=== PATIENT | female | born 1955 | race Caucasian/White ===

== ENCOUNTER 2017-07-10 12:53 | Day surgery (SDC) | payer BC, OTHER ==
[~2017-07-10 12:53] MED LIST: Sodium Chloride 0.9% 10 ML Syringe FLUSH PRN
[2017-07-10] MEDS: Lactated Ringers 1,000 ML IV SCH (13:38)
[2017-07-10] MEDS ORDERED: Propofol 200 MG/20 ML SDV ONE ×5 (13:40→14:34)
[2017-07-10] MEDS ORDERED: Midazolam 1 MG/ML 2 ML SDV ONE ×2 (13:40)
[2017-07-10] MEDS ORDERED: fentaNYL 100 MCG/2 ML SDV ONE ×2 (13:40)
--- NOTE | 2017-07-10 14:42 | PCM.HPR ---
H & P Addendum review - H & P Addendum Review Date of Original H & P: 06/30/17 Date Reviewed: 07/10/17 Time Reviewed: 13:45 Patient was Examined: No Changes
--- NOTE | 2017-07-10 14:43 | PCM.OPNOTE ---
- General Post-Op/Procedure Note Date of Surgery/Procedure: 07/10/17 Operative Procedure(s): Colonoscopy with polypectomy Findings: Sig polys at 30 and 25 cm Sig tics Pre Op Diagnosis: Screening Post-Op Diagnosis: Same Anesthesia Technique: MAC Primary Surgeon: Vickey Pereira Anesthesia Provider: Maureen Lawton Complications: None Condition: Good
--- NOTE | 2017-07-10 18:02 | OR ---
Date of Procedure: 07/10/2017 PREOPERATIVE DIAGNOSIS: Colon screening. POSTOPERATIVE DIAGNOSES: 1. Sigmoid colon polyps. 2. Sigmoid diverticulosis. PROCEDURE: Colonoscopy with polypectomy. ANESTHESIA: IV sedation. DESCRIPTION OF PROCEDURE: The patient was brought to the procedure room, where she was placed on her left side and IV sedation administered. Digital rectal exam was performed which was normal. Colonoscope was inserted and advanced into a tortuous sigmoid colon with multiple diverticula present. There was difficulty maneuvering the scope through, but eventually I was able to get past the sigmoid colon and then advanced to the level of the cecum without difficulty. Cecal position was confirmed by identifying the appendiceal lumen and ileocecal valve. Prep was good with some formed stool from diverticulosis remaining on the left side. Upon withdrawing the scope, the ascending, transverse, and descending colon were normal in appearance. In the sigmoid colon at 30 cm, was a large 1 cm polyp on a long 1 cm stalk. This was transected with the cautery snare. I was unable to retrieve the polyp as I could not find it in all the tortuous folds. There was a second 8-mm polyp located 25 cm from the anal verge that was removed with cautery snare and retrieved in the polyp trap. Multiple large diverticula were present throughout the sigmoid colon. Rectum was normal and retroflexion was normal. Air was removed and the scope withdrawn. The patient tolerated the procedure well and returned to recovery in stable condition. I will have her get enema and strain to try to find the polyp. She should undergo a colonoscopy again in 2 years because of the larger polyps, which were obviously adenomatous. CARLOS MATT MD /[id number]
== END 2017-07-10 16:24 | disposition home or self-care (01) ==
LOC: LL.SDS 12:53
PROVIDERS: ATTEND Surgery
DX: Z12.11 Encounter for screening for malignant neoplasm of colon (principal); K63.5 Polyp of colon; K57.30 Diverticulosis of large intestine without perforation or abscess without bleeding; I10 Essential (primary) hypertension; E11.9 Type 2 diabetes mellitus without complications; E66.01 Morbid (severe) obesity due to excess calories; E78.5 Hyperlipidemia, unspecified; E03.9 Hypothyroidism, unspecified; Z79.4 Long term (current) use of insulin; Z79.899 Other long term (current) drug therapy
CPT/HCPCS: J2250; J2704; J3010; J7120

== ENCOUNTER 2021-09-21 17:29 | Inpatient (IN) | payer MEDICARE, OTHER ==
[2021-09-21 18:41] LABS: ANION GAP 12.8 meq/L (7-15)
[2021-09-21 18:46] LABS: CORONAVIRUS COVID-19 NAA NEGATIVE (NEGATIVE); RESPIRATORY SYNCYTIAL VIR NAA NEGATIVE (NEGATIVE)
[2021-09-21] MEDS ORDERED: Sodium Chloride 0.9% 1,000 ML IV SCH (20:15)
[2021-09-21] MEDS ORDERED: Magnesium Hydroxide 400 MG/5 ML Susp 30 ML Cup PO PRN (20:19)
[2021-09-21] MEDS ORDERED: INSULIN LISPRO 200 UNIT/ML SQ PRN (20:24)
[2021-09-21] MEDS ORDERED: ALBUTEROL SULFATE 90 MCG INH PRN (20:24)
[2021-09-21] MEDS ORDERED: Non-Formulary Medication 1 Each (Oxycodone [Oxycodone] 5 MG Tablet) PO PRN (20:24)
[2021-09-21] MEDS ORDERED: [UNRECOGNIZED DRUG - OTHER] SQ PRN (20:24)
[2021-09-21] MEDS ORDERED: INSULN SQ PRN (20:24)
[2021-09-21] MEDS ORDERED: Acetaminophen 650 MG Tab.ER PO PRN (20:24)
[2021-09-21] MEDS ORDERED: Non-Formulary Medication 1 Each (Cyclobenzaprine [Flexeril] 10 MG Tablet) PO PRN (20:24)
[2021-09-21] MEDS ORDERED: Non-Formulary Medication 1 Each (Alprazolam [Alprazolam] 0.5 MG Tablet) PO SCH (20:30)
[2021-09-21] MEDS ORDERED: HYDROCHLOROTHIAZIDE PO SCH (20:30)
[2021-09-21] MEDS ORDERED: Non-Formulary Medication 1 Each (Aspirin [Children's Aspirin] 81 MG Tab.Chew) PO SCH (20:30)
[2021-09-21] MEDS ORDERED: METOPROLOL TARTRATE 50 MG PO SCH (20:30)
[2021-09-21] MEDS ORDERED: VANCOmycin 1.5 GM/300 ML 1.5 GM in Premix Bag 1 BAG IV SCH (20:30)
[2021-09-21] MEDS ORDERED: VALSARTAN PO SCH (20:30)
[2021-09-21] MEDS ORDERED: [UNRECOGNIZED DRUG - OTHER] PO SCH (20:30)
[2021-09-21] MEDS ORDERED: METFORMIN HCL 500 MG PO SCH (20:30)
[2021-09-21] MEDS ORDERED: Vancomycin 2 GM in Sodium Chloride 0.9% 500 ML IV SCH ×2 (21:00→22:00)
[2021-09-21] MEDS: cefTRIAXone 2 GM Vial IVPUSH SCH (21:13)
[2021-09-21] MEDS ORDERED: Albuterol 6.7 GM Inhaler INH PRN (21:34)
[2021-09-21] MEDS ORDERED: Cyclobenzaprine 10 MG Tab PO PRN (21:41)
[2021-09-21] MEDS ORDERED: oxyCODONE 5 MG Tab PO PRN (21:48)
[2021-09-21] MEDS: BIOTIN 10 MG PO SCH (22:18)
[2021-09-21] MEDS: oxyCODONE 5 MG Tab PO PRN (23:12)
[2021-09-22] MEDS: oxyCODONE 5 MG Tab PO PRN ×5 (04:44→20:26)
[2021-09-22] MEDS ORDERED: Insulin Lispro 100 Units/ML 3 ML Vial SUBCUT SCH ×3 (07:00→11:30)
[2021-09-22] MEDS: [UNRECOGNIZED DRUG - OTHER] SUBCUT SCH ×5 (07:30→17:02)
[2021-09-22] MEDS: INSULIN LISPRO SUBCUT SCH ×5 (07:30→17:02)
[2021-09-22] MEDS: TRESIBA 200 UNIT/ML SUBCUT SCH (07:30)
[2021-09-22] MEDS ORDERED: Non-Formulary Medication 1 Each (Levothyroxine [Synthroid] 50 MCG Tablet) PO SCH (07:30)
[2021-09-22] MEDS ORDERED: IRON PO SCH (08:00)
[2021-09-22] MEDS ORDERED: MULTIVIT CALC MINS PO SCH (08:00)
[2021-09-22] MEDS ORDERED: INSULIN LISPRO 200 UNIT/ML SQ SCH (08:00)
[2021-09-22] MEDS ORDERED: FOLIC PO SCH (08:00)
[2021-09-22] MEDS ORDERED: CLOPIDOGREL BISULFATE 75 MG PO SCH (08:00)
[2021-09-22] MEDS ORDERED: INSULN SQ SCH (08:00)
[2021-09-22] MEDS ORDERED: [UNRECOGNIZED DRUG - OTHER] PO SCH (08:00)
[2021-09-22] MEDS ORDERED: Non-Formulary Medication 1 Each (Cetirizine [Zyrtec] 10 MG Tablet) PO SCH (08:00)
[2021-09-22] MEDS ORDERED: [UNRECOGNIZED DRUG - OTHER] SQ SCH (08:00)
[2021-09-22] MEDS: Hydrochlorothiazide 25 MG Tab PO SCH (08:37)
[2021-09-22] MEDS: Multivitamin Tab PO SCH (08:38)
[2021-09-22] MEDS: Metoprolol Tartrate 25 MG Tab PO SCH ×2 (08:38→17:00)
[2021-09-22] MEDS: ALPRAZolam 0.25 MG Tab PO SCH ×2 (08:38→22:13)
[2021-09-22] MEDS: Aspirin 81 MG Tab.Chew PO SCH (08:38)
[2021-09-22] MEDS: metFORMIN 500 MG Tab PO SCH ×2 (08:38→16:59)
[2021-09-22] MEDS: Clopidogrel 75 MG Tab PO SCH (08:38)
[2021-09-22] MEDS: Cetirizine 10 MG Tab PO SCH (08:38)
[2021-09-22] MEDS: Sodium Chloride 0.9% 10 ML Syringe FLUSH PRN ×2 (08:39→12:18)
[2021-09-22] MEDS: Levothyroxine 50 MCG Tab PO SCH (08:39)
[2021-09-22] MEDS: BIOTIN 10 MG PO SCH (08:39)
[2021-09-22 10:23] LABS: ANION GAP 8.2 meq/L (7-15)
[2021-09-22] MEDS ORDERED: 50% Dextrose in Water 50 ML Syringe IVPUSH PRN (10:41)
[2021-09-22] MEDS ORDERED: Glucagon,Human Recombinant 1 MG Vial IM PRN (10:41)
[2021-09-22] MEDS ORDERED: Non-Formulary Medication 1 Each (Gabapentin [Neurontin] 300 MG Cap) PO SCH (20:00)
[2021-09-22] MEDS: atorvaSTATin 40 MG Tab PO SCH (20:15)
[2021-09-22] MEDS: cefTRIAXone 2 GM Vial IVPUSH SCH (20:15)
[2021-09-22] MEDS: Gabapentin 300 MG Cap PO SCH (21:54)
[2021-09-23] MEDS: oxyCODONE 5 MG Tab PO PRN ×5 (01:46→19:49)
[2021-09-23] MEDS: Acetaminophen 325 MG Tab PO PRN ×2 (02:02→19:47)
[2021-09-23] MEDS: Sodium Chloride 0.9% 10 ML Syringe FLUSH PRN ×2 (06:10→09:58)
[2021-09-23] MEDS: Multivitamin Tab PO SCH (09:47)
[2021-09-23] MEDS: Clopidogrel 75 MG Tab PO SCH (09:47)
[2021-09-23] MEDS: Aspirin 81 MG Tab.Chew PO SCH (09:47)
[2021-09-23] MEDS: metFORMIN 500 MG Tab PO SCH ×2 (09:47→17:07)
[2021-09-23] MEDS: Cetirizine 10 MG Tab PO SCH (09:48)
[2021-09-23] MEDS: BIOTIN 10 MG PO SCH (09:49)
[2021-09-23] MEDS: INSULIN LISPRO SUBCUT SCH ×6 (09:50→17:04)
[2021-09-23] MEDS: [UNRECOGNIZED DRUG - OTHER] SUBCUT SCH ×6 (09:50→17:04)
[2021-09-23] MEDS: TRESIBA 200 UNIT/ML SUBCUT SCH (09:51)
[2021-09-23] MEDS: Metoprolol Tartrate 25 MG Tab PO SCH ×2 (09:52→17:08)
[2021-09-23] MEDS: Hydrochlorothiazide 25 MG Tab PO SCH (09:52)
[2021-09-23] MEDS: Levothyroxine 50 MCG Tab PO SCH (10:04)
[2021-09-23] MEDS: ALPRAZolam 0.25 MG Tab PO SCH (10:04)
[2021-09-23 13:13] LABS: ANION GAP 7.8 meq/L (7-15)
[2021-09-23] MEDS: atorvaSTATin 40 MG Tab PO SCH (19:48)
[2021-09-23] MEDS: cefTRIAXone 2 GM Vial IVPUSH SCH (19:50)
[2021-09-23] MEDS: Gabapentin 300 MG Cap PO SCH (20:29)
[2021-09-24] MEDS: ALPRAZolam 0.25 MG Tab PO SCH ×3 (00:19→20:45)
[2021-09-24] MEDS: oxyCODONE 5 MG Tab PO PRN ×4 (00:29→16:42)
[2021-09-24] MEDS: Levothyroxine 50 MCG Tab PO SCH (07:15)
[2021-09-24] MEDS: TRESIBA 200 UNIT/ML SUBCUT SCH (07:27)
[2021-09-24] MEDS: [UNRECOGNIZED DRUG - OTHER] SUBCUT SCH ×6 (07:30→18:12)
[2021-09-24] MEDS: INSULIN LISPRO SUBCUT SCH ×6 (07:30→18:12)
[2021-09-24] MEDS: Clopidogrel 75 MG Tab PO SCH (08:08)
[2021-09-24] MEDS: Multivitamin Tab PO SCH (08:08)
[2021-09-24] MEDS: Aspirin 81 MG Tab.Chew PO SCH (08:09)
[2021-09-24] MEDS: Cetirizine 10 MG Tab PO SCH (08:13)
[2021-09-24] MEDS: metFORMIN 500 MG Tab PO SCH ×2 (08:13→18:08)
[2021-09-24] MEDS: Metoprolol Tartrate 25 MG Tab PO SCH ×2 (08:19→18:09)
[2021-09-24] MEDS: Hydrochlorothiazide 25 MG Tab PO SCH (08:20)
[2021-09-24] MEDS: BIOTIN 10 MG PO SCH (08:23)
[2021-09-24] MEDS ORDERED: Polyethylene Glycol 3350 Powder 510 GM Bot PO SCH (08:45)
[2021-09-24] MEDS ORDERED: Polyethylene Glycol 3350 Powder 17 GM Packet PO SCH (11:15)
[2021-09-24] MEDS: Acetaminophen 325 MG Tab PO PRN ×2 (11:22→18:09)
[2021-09-24] MEDS ORDERED: Bacitracin Oint 1 GM U/D Packet TOP ONE ×2 (12:59→17:47)
[2021-09-24] MEDS: Sodium Chloride 0.9% 10 ML Syringe FLUSH PRN ×2 (13:23→14:50)
[2021-09-24] MEDS: atorvaSTATin 40 MG Tab PO SCH (19:57)
[2021-09-24] MEDS: cefTRIAXone 2 GM Vial IVPUSH SCH (19:57)
[2021-09-24] MEDS: Gabapentin 300 MG Cap PO SCH (19:57)
[2021-09-24] MEDS ORDERED: Aspirin 81 MG Tab.Chew PO SCH (20:00)
== END 2021-09-24 21:00 | DRG 863 ==
LOC: LL.ED 17:29 → LL.MS 19:15
PROVIDERS: ADMIT Physician Assistant; ATTEND Physician Assistant
DX: T81.49XA Infection following a procedure, other surgical site, initial encounter (principal); Z89.431 Acquired absence of right foot; E11.51 Type 2 diabetes mellitus with diabetic peripheral angiopathy without gangrene; E11.52 Type 2 diabetes mellitus with diabetic peripheral angiopathy with gangrene; L03.031 Cellulitis of right toe; M79.7 Fibromyalgia; Z79.02 Long term (current) use of antithrombotics/antiplatelets; E03.9 Hypothyroidism, unspecified; E78.5 Hyperlipidemia, unspecified; J44.9 Chronic obstructive pulmonary disease, unspecified; Z20.822 Contact with and (suspected) exposure to COVID-19; I10 Essential (primary) hypertension; E05.90 Thyrotoxicosis, unspecified without thyrotoxic crisis or storm; Z88.1 Allergy status to other antibiotic agents; Z88.0 Allergy status to penicillin; Z88.8 Allergy status to other drugs, medicaments and biological substances; Z79.4 Long term (current) use of insulin; Z79.82 Long term (current) use of aspirin; Z79.899 Other long term (current) drug therapy; Z79.890 Hormone replacement therapy; Z87.891 Personal history of nicotine dependence
CPT/HCPCS: 0241U; 36415; 71045; 73630; 80053; 80202; 81001; 82947; 83605; 85025; 87040; 87070; 87205; 93005; 99284; 93010; 99223; 99232; 99233; 99239; A9270-GY; J0696; J3370; J3490; J7030; J7040; J7050

== ENCOUNTER 2021-10-05 19:49 | Emergency (ER) | payer MEDICARE, OTHER ==
[2021-10-05] MEDS ORDERED: oxyCODONE 5 MG Tab PO ONE (20:11)
== END 2021-10-05 20:45 | disposition home or self-care (01) ==
LOC: LL.ED 19:49
DX: G89.18 Other acute postprocedural pain (principal); I96 Gangrene, not elsewhere classified; Z48.01 Encounter for change or removal of surgical wound dressing; E11.9 Type 2 diabetes mellitus without complications; E05.90 Thyrotoxicosis, unspecified without thyrotoxic crisis or storm; Z88.0 Allergy status to penicillin; Z88.1 Allergy status to other antibiotic agents; Z79.02 Long term (current) use of antithrombotics/antiplatelets; Z79.4 Long term (current) use of insulin; Z79.82 Long term (current) use of aspirin; Z79.899 Other long term (current) drug therapy
CPT/HCPCS: 99283; A9270-GY

== ENCOUNTER 2021-11-20 11:03 | Inpatient (IN) | payer MEDICARE, OTHER ==
[2021-11-20] MEDS ORDERED: Polyethylene Glycol 3350 Powder 17 GM Packet PO PRN (14:18)
[2021-11-20] MEDS ORDERED: Acetaminophen 650 MG Tab.ER PO PRN (14:18)
[2021-11-20] MEDS ORDERED: Albuterol 6.7 GM Inhaler INH PRN (14:18)
[2021-11-20] MEDS ORDERED: 50% Dextrose in Water 50 ML Syringe IVPUSH PRN (14:22)
[2021-11-20] MEDS ORDERED: Glucagon,Human Recombinant 1 MG Vial IM PRN (14:22)
[2021-11-20] MEDS ORDERED: oxyCODONE 5 MG Tab ONE (14:32)
[2021-11-20] MEDS ORDERED: Ondansetron 4 MG Tab.DIS PO PRN (15:00)
[2021-11-20] MEDS: Metoprolol Tartrate 50 MG Tab PO SCH (17:17)
[2021-11-20] MEDS: metFORMIN 500 MG Tab PO SCH (17:18)
[2021-11-20] MEDS: Insulin Lispro 100 Units/ML 3 ML Vial SUBCUT SCH (17:19)
[2021-11-20] MEDS: oxyCODONE 5 MG Tab PO PRN ×2 (18:05→21:49)
[2021-11-20] MEDS: Sennosides 8.6 MG Tab PO SCH (21:01)
[2021-11-20] MEDS: atorvaSTATin 40 MG Tab PO SCH (21:01)
[2021-11-20] MEDS: Gabapentin 300 MG Cap PO SCH (21:01)
[2021-11-20] MEDS: ALPRAZolam 0.25 MG Tab PO PRN (21:50)
[2021-11-21] MEDS: Cyclobenzaprine 10 MG Tab PO PRN ×2 (01:21→20:20)
[2021-11-21] MEDS: oxyCODONE 5 MG Tab PO PRN ×5 (02:16→20:21)
[2021-11-21] MEDS: Polyethylene Glycol 3350 Powder 17 GM Packet PO SCH ×2 (07:37→17:19)
[2021-11-21] MEDS: Levothyroxine 50 MCG Tab PO SCH (07:38)
[2021-11-21] MEDS: Insulin Lispro 100 Units/ML 3 ML Vial SUBCUT SCH ×3 (07:50→17:21)
[2021-11-21] MEDS: Insulin Glarg,Human.Rec.Analog 100 Unit/ML SUBCUT SCH (07:53)
[2021-11-21] MEDS: Cholecalciferol (Vitamin D3) 25 MCG Tab PO SCH (07:56)
[2021-11-21] MEDS: metFORMIN 500 MG Tab PO SCH ×2 (07:56→17:18)
[2021-11-21] MEDS: Gabapentin 300 MG Cap PO SCH ×2 (07:57→20:22)
[2021-11-21] MEDS: Cetirizine 10 MG Tab PO SCH (07:57)
[2021-11-21] MEDS: Clopidogrel 75 MG Tab PO SCH (07:57)
[2021-11-21] MEDS: Multivitamin Tab PO SCH (07:57)
[2021-11-21] MEDS: Hydrochlorothiazide 25 MG Tab PO SCH (07:58)
[2021-11-21] MEDS: Aspirin 81 MG Tab.Chew PO SCH (07:58)
[2021-11-21] MEDS ORDERED: VALSARTAN PO SCH (08:00)
[2021-11-21] MEDS ORDERED: BIOTIN 10 MG PO SCH (08:00)
[2021-11-21] MEDS ORDERED: [UNRECOGNIZED DRUG - OTHER] PO SCH (08:00)
[2021-11-21] MEDS ORDERED: HYDROCHLOROTHIAZIDE PO SCH (08:00)
[2021-11-21] MEDS: Metoprolol Tartrate 50 MG Tab PO SCH ×2 (08:06→17:18)
[2021-11-21] MEDS: Losartan 50 MG Tab PO SCH (08:07)
[2021-11-21] MEDS: Betamethasone Dipropionate/Clotrimazole 0.05-1% Crm 15 GM Tube TOP PRN (12:00)
[2021-11-21] MEDS: Cyanocobalamin (Vitamin B12) 1,000 MCG Tab PO SCH (14:03)
[2021-11-21] MEDS: atorvaSTATin 40 MG Tab PO SCH (20:20)
[2021-11-21] MEDS: Sennosides 8.6 MG Tab PO SCH (20:20)
[2021-11-22] MEDS: ALPRAZolam 0.25 MG Tab PO PRN (01:03)
[2021-11-22] MEDS: oxyCODONE 5 MG Tab PO PRN ×4 (03:39→23:30)
[2021-11-22] MEDS: Insulin Lispro 100 Units/ML 3 ML Vial SUBCUT SCH ×3 (07:27→17:33)
[2021-11-22] MEDS: Insulin Glarg,Human.Rec.Analog 100 Unit/ML SUBCUT SCH (07:28)
[2021-11-22] MEDS: Polyethylene Glycol 3350 Powder 17 GM Packet PO SCH ×2 (08:25→17:38)
[2021-11-22] MEDS: Levothyroxine 50 MCG Tab PO SCH (08:25)
[2021-11-22] MEDS: Cetirizine 10 MG Tab PO SCH (08:25)
[2021-11-22] MEDS: Losartan 50 MG Tab PO SCH (08:25)
[2021-11-22] MEDS: Aspirin 81 MG Tab.Chew PO SCH (08:26)
[2021-11-22] MEDS: Cyanocobalamin (Vitamin B12) 1,000 MCG Tab PO SCH (08:26)
[2021-11-22] MEDS: Multivitamin Tab PO SCH (08:26)
[2021-11-22] MEDS: Metoprolol Tartrate 50 MG Tab PO SCH ×2 (08:26→17:35)
[2021-11-22] MEDS: Hydrochlorothiazide 25 MG Tab PO SCH (08:26)
[2021-11-22] MEDS: metFORMIN 500 MG Tab PO SCH ×2 (08:26→17:34)
[2021-11-22] MEDS: Gabapentin 300 MG Cap PO SCH ×2 (08:26→19:57)
[2021-11-22] MEDS: Cholecalciferol (Vitamin D3) 25 MCG Tab PO SCH (08:27)
[2021-11-22] MEDS: Clopidogrel 75 MG Tab PO SCH (08:28)
[2021-11-22] MEDS: Sennosides 8.6 MG Tab PO SCH (17:39)
[2021-11-22] MEDS: atorvaSTATin 40 MG Tab PO SCH (19:57)
[2021-11-23] MEDS: Cyclobenzaprine 10 MG Tab PO PRN ×2 (02:08→20:59)
[2021-11-23] MEDS: ALPRAZolam 0.25 MG Tab PO PRN ×2 (02:09→23:06)
[2021-11-23] MEDS: oxyCODONE 5 MG Tab PO PRN ×4 (04:08→17:48)
[2021-11-23] MEDS: Gabapentin 300 MG Cap PO SCH ×2 (08:28→20:55)
[2021-11-23] MEDS: Cholecalciferol (Vitamin D3) 25 MCG Tab PO SCH (08:29)
[2021-11-23] MEDS: Hydrochlorothiazide 25 MG Tab PO SCH (08:30)
[2021-11-23] MEDS: Levothyroxine 50 MCG Tab PO SCH (08:30)
[2021-11-23] MEDS: Multivitamin Tab PO SCH (08:30)
[2021-11-23] MEDS: Aspirin 81 MG Tab.Chew PO SCH (08:30)
[2021-11-23] MEDS: Clopidogrel 75 MG Tab PO SCH (08:31)
[2021-11-23] MEDS: Losartan 50 MG Tab PO SCH (08:31)
[2021-11-23] MEDS: Cyanocobalamin (Vitamin B12) 1,000 MCG Tab PO SCH (08:31)
[2021-11-23] MEDS: Metoprolol Tartrate 50 MG Tab PO SCH ×2 (08:31→19:06)
[2021-11-23] MEDS: Cetirizine 10 MG Tab PO SCH (08:31)
[2021-11-23] MEDS: metFORMIN 500 MG Tab PO SCH ×2 (08:32→19:05)
[2021-11-23] MEDS: Polyethylene Glycol 3350 Powder 17 GM Packet PO SCH ×2 (08:40→19:06)
[2021-11-23] MEDS: Insulin Glarg,Human.Rec.Analog 100 Unit/ML SUBCUT SCH (09:05)
[2021-11-23] MEDS: Insulin Lispro 100 Units/ML 3 ML Vial SUBCUT SCH ×3 (09:09→19:07)
[2021-11-23] MEDS: Sennosides 8.6 MG Tab PO SCH (19:09)
[2021-11-23] MEDS: atorvaSTATin 40 MG Tab PO SCH (20:55)
[2021-11-24] MEDS: oxyCODONE 5 MG Tab PO PRN ×5 (00:08→21:24)
[2021-11-24] MEDS: Betamethasone Dipropionate/Clotrimazole 0.05-1% Crm 15 GM Tube TOP PRN (02:35)
[2021-11-24] MEDS: Insulin Lispro 100 Units/ML 3 ML Vial SUBCUT SCH ×3 (09:38→17:11)
[2021-11-24] MEDS: Clopidogrel 75 MG Tab PO SCH (09:40)
[2021-11-24] MEDS: Cholecalciferol (Vitamin D3) 25 MCG Tab PO SCH (09:40)
[2021-11-24] MEDS: Metoprolol Tartrate 50 MG Tab PO SCH ×2 (09:41→17:10)
[2021-11-24] MEDS: Losartan 50 MG Tab PO SCH (09:41)
[2021-11-24] MEDS: Hydrochlorothiazide 25 MG Tab PO SCH (09:41)
[2021-11-24] MEDS: Cetirizine 10 MG Tab PO SCH (09:41)
[2021-11-24] MEDS: metFORMIN 500 MG Tab PO SCH ×2 (09:42→17:11)
[2021-11-24] MEDS: Aspirin 81 MG Tab.Chew PO SCH (09:42)
[2021-11-24] MEDS: Gabapentin 300 MG Cap PO SCH ×2 (09:43→19:36)
[2021-11-24] MEDS: Polyethylene Glycol 3350 Powder 17 GM Packet PO SCH ×2 (09:43→17:10)
[2021-11-24] MEDS: Cyanocobalamin (Vitamin B12) 1,000 MCG Tab PO SCH (09:43)
[2021-11-24] MEDS: Multivitamin Tab PO SCH (09:43)
[2021-11-24] MEDS: Insulin Glarg,Human.Rec.Analog 100 Unit/ML SUBCUT SCH (09:44)
[2021-11-24] MEDS: Levothyroxine 50 MCG Tab PO SCH (09:52)
[2021-11-24] MEDS: Sennosides 8.6 MG Tab PO SCH (17:10)
[2021-11-24] MEDS: atorvaSTATin 40 MG Tab PO SCH (19:36)
[2021-11-25] MEDS: Cyclobenzaprine 10 MG Tab PO PRN ×2 (02:23→21:40)
[2021-11-25] MEDS: oxyCODONE 5 MG Tab PO PRN ×4 (02:24→21:39)
[2021-11-25] MEDS: Clopidogrel 75 MG Tab PO SCH (11:12)
[2021-11-25] MEDS: Cyanocobalamin (Vitamin B12) 1,000 MCG Tab PO SCH (11:12)
[2021-11-25] MEDS: Multivitamin Tab PO SCH (11:12)
[2021-11-25] MEDS: Aspirin 81 MG Tab.Chew PO SCH (11:12)
[2021-11-25] MEDS: Hydrochlorothiazide 25 MG Tab PO SCH (11:12)
[2021-11-25] MEDS: Cholecalciferol (Vitamin D3) 25 MCG Tab PO SCH (11:12)
[2021-11-25] MEDS: Cetirizine 10 MG Tab PO SCH (11:12)
[2021-11-25] MEDS: Gabapentin 300 MG Cap PO SCH ×2 (11:12→20:15)
[2021-11-25] MEDS: Levothyroxine 50 MCG Tab PO SCH (11:13)
[2021-11-25] MEDS: Losartan 50 MG Tab PO SCH (11:13)
[2021-11-25] MEDS: metFORMIN 500 MG Tab PO SCH ×2 (11:17→17:22)
[2021-11-25] MEDS: Metoprolol Tartrate 50 MG Tab PO SCH ×2 (11:17→17:24)
[2021-11-25] MEDS: Insulin Lispro 100 Units/ML 3 ML Vial SUBCUT SCH ×3 (11:18→17:18)
[2021-11-25] MEDS: Polyethylene Glycol 3350 Powder 17 GM Packet PO SCH ×2 (11:18→17:24)
[2021-11-25] MEDS: Insulin Glarg,Human.Rec.Analog 100 Unit/ML SUBCUT SCH (11:19)
[2021-11-25] MEDS: Sennosides 8.6 MG Tab PO SCH (17:24)
[2021-11-25] MEDS: atorvaSTATin 40 MG Tab PO SCH (20:14)
[2021-11-25] MEDS: ALPRAZolam 0.25 MG Tab PO PRN (23:15)
[2021-11-26] MEDS ORDERED: oxyCODONE 5 MG Tab ONE ×4 (05:41→20:30)
[2021-11-26] MEDS ORDERED: Levothyroxine 50 MCG Tab ONE (08:00)
[2021-11-26] MEDS ORDERED: Losartan 50 MG Tab ONE (08:00)
[2021-11-26] MEDS ORDERED: Metoprolol Tartrate 50 MG Tab ONE ×2 (08:00→18:00)
[2021-11-26] MEDS ORDERED: Clopidogrel 75 MG Tab ONE (08:00)
[2021-11-26] MEDS ORDERED: metFORMIN 500 MG Tab ONE ×2 (08:00→18:00)
[2021-11-26] MEDS ORDERED: Gabapentin 300 MG Cap ONE ×2 (08:00→20:00)
[2021-11-26] MEDS ORDERED: Hydrochlorothiazide 25 MG Tab ONE (08:00)
[2021-11-26] MEDS ORDERED: atorvaSTATin 40 MG Tab ONE (20:00)
[2021-11-27] MEDS ORDERED: oxyCODONE 5 MG Tab ONE ×4 (01:35→18:35)
[2021-11-27] MEDS ORDERED: Losartan 50 MG Tab ONE (08:00)
[2021-11-27] MEDS ORDERED: Clopidogrel 75 MG Tab ONE (08:00)
[2021-11-27] MEDS ORDERED: metFORMIN 500 MG Tab ONE ×2 (08:00→17:00)
[2021-11-27] MEDS ORDERED: Metoprolol Tartrate 50 MG Tab ONE ×2 (08:00→17:00)
[2021-11-27] MEDS ORDERED: Gabapentin 300 MG Cap ONE ×2 (08:00→19:40)
[2021-11-27] MEDS ORDERED: Hydrochlorothiazide 25 MG Tab ONE (08:00)
[2021-11-27] MEDS ORDERED: Levothyroxine 50 MCG Tab ONE (08:00)
[2021-11-27] MEDS ORDERED: atorvaSTATin 40 MG Tab ONE (19:40)
[2021-11-27] MEDS ORDERED: Cyclobenzaprine 10 MG Tab ONE (21:44)
[2021-11-27] MEDS ORDERED: ALPRAZolam 0.25 MG Tab ONE (21:50)
[2021-11-28] MEDS ORDERED: oxyCODONE 5 MG Tab ONE ×3 (06:30→20:50)
[2021-11-28] MEDS ORDERED: Losartan 50 MG Tab ONE (08:00)
[2021-11-28] MEDS ORDERED: Clopidogrel 75 MG Tab ONE (08:00)
[2021-11-28] MEDS ORDERED: Levothyroxine 50 MCG Tab ONE (08:00)
[2021-11-28] MEDS ORDERED: Gabapentin 300 MG Cap ONE ×2 (08:00→20:00)
[2021-11-28] MEDS ORDERED: metFORMIN 500 MG Tab ONE (08:00)
[2021-11-28] MEDS ORDERED: Hydrochlorothiazide 25 MG Tab ONE (08:00)
[2021-11-28] MEDS ORDERED: Metoprolol Tartrate 50 MG Tab ONE (08:00)
[2021-11-28] MEDS ORDERED: atorvaSTATin 40 MG Tab ONE (20:00)
[2021-11-28] MEDS ORDERED: Oxybutynin 5 MG Tab ONE (20:00)
[2021-11-29] MEDS ORDERED: oxyCODONE 5 MG Tab ONE ×5 (01:10→20:00)
[2021-11-29] MEDS ORDERED: metFORMIN 500 MG Tab ONE (08:00)
[2021-11-29] MEDS ORDERED: Losartan 50 MG Tab ONE (08:00)
[2021-11-29] MEDS ORDERED: Gabapentin 300 MG Cap ONE ×2 (08:00→20:00)
[2021-11-29] MEDS ORDERED: Metoprolol Tartrate 50 MG Tab ONE (08:00)
[2021-11-29] MEDS ORDERED: Levothyroxine 50 MCG Tab ONE (08:00)
[2021-11-29] MEDS ORDERED: Clopidogrel 75 MG Tab ONE (08:00)
[2021-11-29] MEDS ORDERED: Hydrochlorothiazide 25 MG Tab ONE (08:00)
[2021-11-29] MEDS ORDERED: atorvaSTATin 40 MG Tab ONE (20:00)
[2021-11-29] MEDS ORDERED: Cyclobenzaprine 10 MG Tab ONE (22:55)
[2021-11-29] MEDS ORDERED: ALPRAZolam 0.25 MG Tab ONE (22:55)
[2021-11-30] MEDS ORDERED: oxyCODONE 5 MG Tab ONE ×4 (01:30→20:00)
[2021-11-30] MEDS ORDERED: Levothyroxine 50 MCG Tab ONE (08:00)
[2021-11-30] MEDS ORDERED: Clopidogrel 75 MG Tab ONE (08:00)
[2021-11-30] MEDS ORDERED: Hydrochlorothiazide 25 MG Tab ONE (08:00)
[2021-11-30] MEDS ORDERED: Gabapentin 300 MG Cap ONE ×2 (08:00→20:00)
[2021-11-30] MEDS ORDERED: metFORMIN 500 MG Tab ONE ×2 (08:00→17:22)
[2021-11-30] MEDS ORDERED: Losartan 50 MG Tab ONE (08:00)
[2021-11-30] MEDS ORDERED: Metoprolol Tartrate 50 MG Tab ONE ×2 (08:00→17:22)
[2021-11-30] MEDS ORDERED: Cyclobenzaprine 10 MG Tab ONE ×2 (12:02→22:10)
[2021-11-30] MEDS ORDERED: Metoprolol Succinate 50 MG Tab.ER ONE (17:22)
[2021-11-30] MEDS ORDERED: atorvaSTATin 40 MG Tab ONE (20:00)
[2021-12-01] MEDS ORDERED: oxyCODONE 5 MG Tab ONE ×4 (01:20→23:55)
[2021-12-01] MEDS ORDERED: Losartan 50 MG Tab ONE (08:00)
[2021-12-01] MEDS ORDERED: Clopidogrel 75 MG Tab ONE (08:00)
[2021-12-01] MEDS ORDERED: Metoprolol Tartrate 50 MG Tab ONE (08:00)
[2021-12-01] MEDS ORDERED: Gabapentin 300 MG Cap ONE ×2 (08:00→20:00)
[2021-12-01] MEDS ORDERED: Levothyroxine 50 MCG Tab ONE (08:00)
[2021-12-01] MEDS ORDERED: Hydrochlorothiazide 25 MG Tab ONE (08:00)
[2021-12-01] MEDS ORDERED: metFORMIN 500 MG Tab ONE (08:00)
[2021-12-01] MEDS ORDERED: atorvaSTATin 40 MG Tab ONE (20:00)
[2021-12-02] MEDS ORDERED: Cyclobenzaprine 10 MG Tab ONE (02:10)
[2021-12-02] MEDS ORDERED: ALPRAZolam 0.25 MG Tab ONE (02:10)
[2021-12-02] MEDS ORDERED: Clopidogrel 75 MG Tab ONE (08:00)
[2021-12-02] MEDS ORDERED: Levothyroxine 88 MCG Tab ONE (08:00)
[2021-12-02] MEDS ORDERED: Hydrochlorothiazide 25 MG Tab ONE (10:00)
[2021-12-02] MEDS ORDERED: Losartan 50 MG Tab ONE (10:00)
[2021-12-02] MEDS ORDERED: metFORMIN 500 MG Tab ONE (10:00)
[2021-12-02] MEDS ORDERED: Metoprolol Tartrate 50 MG Tab ONE (10:00)
[2021-12-02] MEDS ORDERED: Gabapentin 300 MG Cap ONE ×2 (10:00→20:00)
[2021-12-02] MEDS ORDERED: oxyCODONE 5 MG Tab ONE ×3 (10:11→22:00)
[2021-12-02] MEDS ORDERED: atorvaSTATin 40 MG Tab ONE (20:00)
[2021-12-03] MEDS ORDERED: ALPRAZolam 0.25 MG Tab ONE (02:30)
[2021-12-03] MEDS ORDERED: oxyCODONE 5 MG Tab ONE ×4 (02:30→23:00)
[2021-12-03] MEDS ORDERED: Gabapentin 300 MG Cap ONE ×2 (08:30→20:00)
[2021-12-03] MEDS ORDERED: metFORMIN 500 MG Tab ONE ×2 (08:30→17:45)
[2021-12-03] MEDS ORDERED: Metoprolol Tartrate 50 MG Tab ONE ×2 (08:30→17:45)
[2021-12-03] MEDS ORDERED: Levothyroxine 50 MCG Tab ONE (08:30)
[2021-12-03] MEDS ORDERED: Clopidogrel 75 MG Tab ONE (08:30)
[2021-12-03] MEDS ORDERED: Hydrochlorothiazide 25 MG Tab ONE (08:50)
[2021-12-03] MEDS ORDERED: Losartan 50 MG Tab ONE (08:50)
[2021-12-03] MEDS ORDERED: atorvaSTATin 40 MG Tab ONE (20:00)
[2021-12-04] MEDS ORDERED: Metoprolol Tartrate 50 MG Tab ONE (08:00)
[2021-12-04] MEDS ORDERED: Clopidogrel 75 MG Tab ONE (08:00)
[2021-12-04] MEDS ORDERED: metFORMIN 500 MG Tab ONE (08:00)
[2021-12-04] MEDS ORDERED: Levothyroxine 50 MCG Tab ONE (08:00)
[2021-12-04] MEDS ORDERED: Gabapentin 300 MG Cap ONE ×2 (08:00→20:00)
[2021-12-04] MEDS ORDERED: Losartan 50 MG Tab ONE (08:00)
[2021-12-04] MEDS ORDERED: Hydrochlorothiazide 25 MG Tab ONE (08:00)
[2021-12-04] MEDS ORDERED: oxyCODONE 5 MG Tab ONE ×4 (08:46→22:03)
[2021-12-04] MEDS ORDERED: atorvaSTATin 40 MG Tab ONE (20:00)
[2021-12-04] MEDS ORDERED: Cyclobenzaprine 10 MG Tab ONE (20:45)
[2021-12-05] MEDS ORDERED: ALPRAZolam 0.25 MG Tab ONE (00:28)
[2021-12-05] MEDS ORDERED: oxyCODONE 5 MG Tab ONE ×4 (03:00→22:17)
[2021-12-05] MEDS ORDERED: Gabapentin 300 MG Cap ONE ×2 (08:00→20:00)
[2021-12-05] MEDS ORDERED: Losartan 50 MG Tab ONE (08:00)
[2021-12-05] MEDS ORDERED: Hydrochlorothiazide 25 MG Tab ONE (08:00)
[2021-12-05] MEDS ORDERED: metFORMIN 500 MG Tab ONE (08:00)
[2021-12-05] MEDS ORDERED: Metoprolol Tartrate 50 MG Tab ONE (08:00)
[2021-12-05] MEDS ORDERED: Clopidogrel 75 MG Tab ONE (08:00)
[2021-12-05] MEDS ORDERED: atorvaSTATin 40 MG Tab ONE (20:00)
[2021-12-06] MEDS ORDERED: atorvaSTATin 40 MG Tab ONE (20:00)
[2021-12-06] MEDS ORDERED: Gabapentin 300 MG Cap ONE (20:00)
[2021-12-25 12:36] LABS: ANION GAP 10.7 meq/L (7-15)
== END 2021-12-10 16:47 | disposition home or self-care (01) | DRG 948 ==
LOC: LL.MS 12:29 → LL.ZCENSUS 11-26 11:56
PROVIDERS: ADMIT Physician Assistant Medical; ATTEND Physician Assistant
DX: R53.81 Other malaise (principal); E78.00 Pure hypercholesterolemia, unspecified; I10 Essential (primary) hypertension; E11.51 Type 2 diabetes mellitus with diabetic peripheral angiopathy without gangrene; E03.9 Hypothyroidism, unspecified; E11.42 Type 2 diabetes mellitus with diabetic polyneuropathy; E78.5 Hyperlipidemia, unspecified; Z89.511 Acquired absence of right leg below knee; Z88.0 Allergy status to penicillin; Z88.1 Allergy status to other antibiotic agents; Z88.8 Allergy status to other drugs, medicaments and biological substances; Z79.82 Long term (current) use of aspirin; Z79.4 Long term (current) use of insulin; Z79.899 Other long term (current) drug therapy; Z87.891 Personal history of nicotine dependence
CPT/HCPCS: 36415; 80048; 82565; 82947; 85014; 85018; 85025; 86140; 97110-GO; 97110-GP; 97140-GP; 97163-GP; 97166-GO; 97530-GO; 97530-GP; 97542-GO; A9270-GY; J1815-GY

== ENCOUNTER 2023-04-20 17:40 | Emergency (ER) | payer MEDICARE, OTHER | END 2023-04-20 19:00 | disposition home or self-care (01) | LOC: LL.ED 17:40 | DX: M43.22 Fusion of spine, cervical region (principal); Z48.01 Encounter for change or removal of surgical wound dressing; I10 Essential (primary) hypertension; E78.00 Pure hypercholesterolemia, unspecified; E11.9 Type 2 diabetes mellitus without complications; E03.9 Hypothyroidism, unspecified; Z88.0 Allergy status to penicillin; Z88.8 Allergy status to other drugs, medicaments and biological substances; Z79.84 Long term (current) use of oral hypoglycemic drugs; Z79.82 Long term (current) use of aspirin; Z79.899 Other long term (current) drug therapy; Z90.710 Acquired absence of both cervix and uterus | CPT/HCPCS: 99282; 99283 ==

== ENCOUNTER 2024-11-18 08:54 | Day surgery (SDC) | payer MEDICARE, OTHER ==
[~2024-11-18 08:54] MED LIST changes: +Midazolam 1 MG/ML 2 ML SDV ONE; +Propofol 200 MG/20 ML SDV ONE
[2024-11-18] MEDS: Lactated Ringers 1,000 ML IV SCH (09:53)
== END 2024-11-18 11:35 | disposition home or self-care (01) ==
LOC: LL.SDS 08:54
PROVIDERS: ATTEND Surgery
DX: Z12.11 Encounter for screening for malignant neoplasm of colon (principal); K57.30 Diverticulosis of large intestine without perforation or abscess without bleeding; I10 Essential (primary) hypertension; E11.65 Type 2 diabetes mellitus with hyperglycemia; F41.8 Other specified anxiety disorders; E06.3 Autoimmune thyroiditis; Z86.0101 Personal history of adenomatous and serrated colon polyps; Z87.891 Personal history of nicotine dependence; Z79.84 Long term (current) use of oral hypoglycemic drugs; Z79.899 Other long term (current) drug therapy
CPT/HCPCS: 00811; J7120